=== PATIENT | male | born 1980 | race Hispanic/Latino ===

== ENCOUNTER 2020-05-02 09:46 | Emergency (ER) | payer BC, SELFPAY ==
--- NOTE | 2020-05-02 10:41 | EDPHYS ---
Physician Documentation [facility] Name: Wan Mehta Jr Age: 40 yrs Sex: Male : 1980 Arrival Date: 05/02/2020 Time: 09:48 Bed 20 Private MD: ED Physician Jacek Zaidi Historical: - Allergies: 05/02 10:18 No Known Allergies; aa5 - PMHx: 10:18 None; aa5 - PSHx: 10:18 Tonsillectomy; aa5 - Immunization history:: Adult Immunizations unknown. - Social history:: Smoking status: Patient denies any tobacco usage or history of. Vital Signs: 10:05 BP 170 / 105; Pulse 92; Resp 16 S; Temp 98.9(O); Pulse Ox 100% on R/A; Weight 108.86 aa5 kg; Height 6 ft. 0 in. (182.88 cm); Pain 0/10; 11:00 BP 142 / 108; Pulse 82; Resp 16; Pulse Ox 99% ; bp 10:05 Body Mass Index 32.55 (108.86 kg, 182.88 cm) aa5 MDM: 10:10 Patient medically screened. tw4 Administered Medications: No medications were administered Disposition: 05/02/20 10:41 Discharged to Home. Impression: Viral infection, unspecified. - Condition is Stable. - Discharge Instructions: Viral Respiratory Infection. - Prescriptions for Ibuprofen 800 mg Oral Tablet - take 1 tablet by ORAL route every 8 hours As needed take with food; 30 tablet. Tessalon Perles 100 mg Oral Capsule - take 1 capsule by ORAL route every 8 hours As needed; 15 capsule. Albuterol Sulfate 90 mcg/actuation - inhale 1-2 puff by INHALATION route every 4-6 hours; 1 Inhaler. - Medication Reconciliation Form, Thank You Letter, Antibiotic Education, Prescription Opioid Use form. - Follow up: Private Physician; When: Upon discharge from the Emergency Department; Reason: Recheck today's complaints, Continuance of care, Re-evaluation by your physician. - Problem is new. - Symptoms are unchanged. Addendum: 05/14/2020 16:18 Addendum: HPI: Pt is a 40 year old male that comes to the Ed with complaint of not t w4 felling well. Pt states that one of his coworkers tested positive for covid. Pt denies fevers, chills, cough, and SOB. Pt denies abdominal pain,nausea, vomiting. . Addendum: ROS: Constitutional: negative for fever, chills, HEENT: negative for sore throat , neck pain Resp: negative for cough SOB RANGEL Abdomen: negative for abdominal pain Ext: negative for injury edema. All other systems negative except as marked. Addendum: PE: General: well developed well nourished male in NAD HEENT: PERRLA, EOMI neck supple no meningisms Resp: CTAB ,no resp distress, nl BS Abdomen: soft BD,NT Ext: no edema nontender. Signatures: Dispatcher [employer] EDRI Sharla Avendano, RN RN aa5 Go Simental RN RN bp Jacek Zaidi, MD POOLE tw4 Corrections: (The following items were deleted from the chart) 05/02 11:08 10:22 CORONAVIRUS+MR.LAB.BRZ ordered. EDRI EDRI 11:08 10:34 Influenza Screen (A \T\ B)+BA.LAB.BRZ ordered. [facility] EDRI 11:24 10:41 05/02/2020 10:41 Discharged to Home. Impression: Viral infection, unspecified. bp Condition is Stable. Forms are Medication Reconciliation Form, Thank You Letter, Antibiotic Education, Prescription Opioid Use. Follow up: Private Physician; When: Upon discharge from the Emergency Department; Reason: Recheck today's complaints, Continuance of care, Re-evaluation by your physician. Problem is new. Symptoms are unchanged. tw4
--- NOTE | 2020-05-02 10:41 | ER ---
Nurse's Notes [facility] Name: Wan Mehta Jr Age: 40 yrs Sex: Male : 1980 Arrival Date: 05/02/2020 Time: 09:48 Bed 20 Private MD: Diagnosis: Viral infection, unspecified Presentation: 05/02 10:04 Chief complaint: Patient states: chills, cough, nausea, body aches since . Pt aa5 states "one of my co-workers tested positive". 10:04 Acuity: PETE 4 aa5 10:04 Method Of Arrival: Ambulatory aa5 10:04 Coronavirus screen: cough unrelated to allergies, nausea. Ebola Screen: Patient aa5 negative for fever greater than or equal to 101.5 degrees Fahrenheit, and additional compatible Ebola Virus Disease symptoms. Initial Sepsis Screen: Does the patient meet any 2 criteria? No. Patient's initial sepsis screen is negative. Does the patient have a suspected source of infection? No. Patient's initial sepsis screen is negative. Risk Assessment: Do you want to hurt yourself or someone else? Patient reports no desire to harm self or others. Onset of symptoms was April 2020. Triage Assessment: 11:00 General: Appears in no apparent distress. uncomfortable, Behavior is calm, cooperative, bp appropriate for age. Pain: Denies pain. EENT: No deficits noted. Neuro: No deficits noted. Cardiovascular: No deficits noted. Respiratory: No deficits noted. GI: No signs and/or symptoms were reported involving the gastrointestinal system. : No signs and/or symptoms were reported regarding the genitourinary system. Derm: No deficits noted. Musculoskeletal: No deficits noted. Historical: - Allergies: 10:18 No Known Allergies; aa5 - PMHx: 10:18 None; aa5 - PSHx: 10:18 Tonsillectomy; aa5 - Immunization history:: Adult Immunizations unknown. - Social history:: Smoking status: Patient denies any tobacco usage or history of. Screenin:00 Abuse screen: Denies threats or abuse. Denies injuries from another. Nutritional bp screening: No deficits noted. Tuberculosis screening: No symptoms or risk factors identified. Fall Risk None identified. Assessment: 10:05 General: Appears comfortable, Behavior is calm, cooperative. Pain: Complains of pain in aa5 whole body Quality of pain is described as aching. Neuro: Level of Consciousness is awake, alert, obeys commands, Oriented to person, place, time, situation. Cardiovascular: Heart tones S1 S2 present Rhythm is regular. Respiratory: Reports cough Airway is patent Respiratory effort is even, unlabored, Respiratory pattern is regular, symmetrical. GI: Abdomen is round non-distended, Reports nausea, Patient currently denies diarrhea, vomiting. : No signs and/or symptoms were reported regarding the genitourinary system. EENT: No signs and/or symptoms were reported regarding the EENT system. Derm: Skin is pink, warm \\T\\ dry. Musculoskeletal: Range of motion: intact in all extremities. 11:00 General: SEE TRIAGE NOTE. bp 11:23 Reassessment: PT D/C HOME AMBULATORY, DX WITH VIRAL URI. bp 12:23 Reassessment: Pt called with positive COVID-[address] Zaidi, pt verbalizes aa5 understanding. . Vital Signs: 10:05 BP 170 / 105; Pulse 92; Resp 16 S; Temp 98.9(O); Pulse Ox 100% on R/A; Weight 108.86 aa5 kg; Height 6 ft. 0 in. (182.88 cm); Pain 0/10; 11:00 BP 142 / 108; Pulse 82; Resp 16; Pulse Ox 99% ; bp 10:05 Body Mass Index 32.55 (108.86 kg, 182.88 cm) aa5 ED Course: 09:48 Patient arrived in ED. rg4 10:04 Arm band placed on Patient placed in an exam room, on a stretcher. aa5 10:10 Jacek Zaidi MD is Attending Physician. tw4 10:15 Sharla Avendano, RN is Primary Nurse. aa5 10:17 Triage completed. aa5 11:00 Patient has correct armband on for positive identification. Bed in low position. Call bp light in reach. Side rails up X2. 11:03 Primary Nurse role handed off by Sharla Avendano, RN bp 11:03 Go Simental, RN is Primary Nurse. bp 11:12 No provider procedures requiring assistance completed. Patient did not have IV access bp during this emergency room visit. Administered Medications: No medications were administered Outcome: 10:41 Discharge ordered by . tw4 11:23 Discharged to home ambulatory. bp 11:23 Condition: stable 11:23 Discharge instructions given to patient, Instructed on discharge instructions, follow up and referral plans. medication usage, Demonstrated understanding of instructions, follow-up care, medications, Prescriptions given X 3. 11:24 Patient left the ED. bp Signatures: Sharla Avendano, RN RN aa5 Sommer Davenport rg4 Go Simental RN RN bp Jacek Zaidi MD MD tw4 Corrections: (The following items were deleted from the chart) 12:31 10:05 GI: Abdomen is round non-distended, aa5 aa5
[2020-05-02 11:33] VITALS: TEMP 98.9
[2020-05-02 11:34] VITALS: BP 142/108; O2SAT 99
[2020-05-02 12:02] LABS: SARS-COV-2 RT PCR POSITIVE (NEGATIVE)
== END 2020-05-02 11:24 | disposition home or self-care (01) ==
LOC: ER 09:46
DX: U07.1 COVID-19 (principal)
CPT/HCPCS: 0240U; 99282